=== PATIENT | male | born 1960 | race Caucasian/White ===

== ENCOUNTER → 2025-03-27 06:21 | Outpatient (REF) | payer BC, SELFPAY | LOC: HWRAD 06:21 | PROVIDERS: ATTENDING PHYSICIAN Physician Assistant Medical; FAMILY PHYSICIAN Family Medicine | DX: R09.89 Other specified symptoms and signs involving the circulatory and respiratory systems (principal); F17.210 Nicotine dependence, cigarettes, uncomplicated; F17.200 Nicotine dependence, unspecified, uncomplicated | CPT/HCPCS: 71271; 93880 ==